=== PATIENT | female | born 1945 | race Caucasian/White ===

== ENCOUNTER 2021-05-02 20:13 | Emergency (ER) | payer MEDICARE, OTHER ==
[~2021-05-02] VITALS: Ht 165.1 cm; Wt 83.9 kg
--- NOTE | 2021-05-02 20:22 | ED Syncope ---
General Stated Complaint: FALL Source of Information: Patient, EMS Exam Limitations: No Limitations History of Present Illness Date Seen by Provider: May 02, 2021 Time Seen by Provider: 20:20 Initial Comments 75-year-old female with past medical history of hypertension, hyperlipidemia, thyroid disease coming in via EMS from home after she fell backwards hitting the back of her head, passing out, and afterwards waking up immediately. She says she was sitting on the couch watching the football game. She heard a noise which she thought was in the basement so she stood up quickly to go check. By the time she made it to the door she was feeling lightheaded and took some steps backwards before blacking out and falling backwards and hitting the back of her head. She says she was able to ambulate afterwards. She is having a mild headache, left shoulder pain, left chest wall pain, and some mild low back pain. Pain was better with ice that was applied. Denies any weakness, numbness, sign ificant chest pain, shortness of breath, palpitations, nausea, vomiting, diarrhea, dysuria, rash, vision changes, or any other concerns. She says she was just standing up holding onto her door about to go downstairs when this occurred. She does not remember if she changed positions suddenly before the event. She has been eating and drinking normally today. Allergies and Home Medications Allergies Coded Allergies: morphine (Verified Allergy, Unknown, 05/02/21) oxycodone (Verified Allergy, Unknown, 05/02/21) Patient Home Medication List Home Medication List Reviewed: Yes Review of Systems Constitutional: No chills, No fever EENTM: No blurred vision Respiratory: No cough, No short of breath Cardiovascular: No chest pain; syncope Gastrointestinal: No abdominal pain, No diarrhea, No nausea, No vomiting Genitourinary: no symptoms reported Musculoskeletal: joint pain Skin: no symptoms reported Psychiatric/Neurological: No Symptoms Reported All Other Systems Reviewed Negative Unless Noted: Yes Past Djdawmf-Dragiz-Xkdpld Hx Patient Social History Tobacco Use?: No Past Medical History Surgeries: Yes Hysterectomy, Orthopedic, Tonsillectomy Physical Exam Vital Signs Vital Signs - First Documented Capillary Refill : Height, Weight, BMI Height: '" Weight: lbs. oz. kg; BMI Method: General Appearance: No Apparent Distress, WD/WN HEENT: PERRL/EOMI, Normal ENT Inspection, Pharynx Normal Neck: Full Range of Motion, Normal Inspection, Non Tender, Supple Cardiovascular: Regular Rate, Rhythm, No Edema, Normal Peripheral Pulses Respiratory: Chest Non Tender, Lungs Clear, Normal Breath Sounds, No Accessory Muscle Use, No Respiratory Distress Gastrointestinal: Normal Bowel Sounds, Non Tender, Soft Back: Normal Inspection, No CVA Tenderness, No Vertebral Tenderness Extremities: Normal Capillary Refill, Normal Inspection, No Calf Tenderness, No Pedal Edema, Other (Pain with full range of motion of the left shoulder and tender along the left shoulder laterally, no midline spinal tenderness but does have some paraspinal tenderness in her lower back, no midline cervical spine tenderness as well and is able to range her neck without difficulty) Neurologic/Psychiatric: Alert, Oriented x3, No Motor/Sensory Deficits, Normal M ood/Affect, machine tender II-XII Norm as Tested Cranial Nerves: Normal Hearing, Normal Speech, PERRL Coordination/Gait: Normal Finger to Nose Motor/Sensory: No Motor Deficit, No Sensory Deficit Skin: Normal Color, Warm/Dry Lymphatic: No Adenopathy Progress/Results/Core Measures Results/Orders Lab Results Laboratory Tests Test 05/02/21 20:25 05/02/21 20:32 Range/Units White Blood Count 10.5 4.3-11.0 10^3/uL Red Blood Count 4.43 3.80-5.11 10^6/uL Hemoglobin 11.6 11.5-16.0 g/dL Hematocrit 38 35-52 % Mean Corpuscular Volume 85 80-99 fL Mean Corpuscular Hemoglobin 26 25-34 pg Mean Corpuscular Hemoglobin Concent 31 L 32-36 g/dL Red Cell Distribution Width 14.1 10.0-14.5 % Platelet Count 272 130-400 10^3/uL Mean Platelet Volume 9.9 9.0-12.2 fL Immature Granulocyte % (Auto) 1 % Neutrophils (%) (Auto) 60 42-75 % Lymphocytes (%) (Auto) 32 12-44 % Monocytes (%) (Auto) 6 0-12 % Eosinophils (%) (Auto) 1 0-10 % Basophils (%) (Auto) 0 0-10 % Neutrophils # (Auto) 6.3 1.8-7.8 X 10^3 Lymphocytes # (Auto) 3.3 1.0-4.0 X 10^3 Monocytes # (Auto) 0.7 0.0-1.0 X 10^3 Eosinophils # (Auto) 0.2 0.0-0.3 10^3/uL Basophils # (Auto) 0.0 0.0-0.1 10^3/uL Immature Granulocyte # (Auto) 0.1 0.0-0.1 10^3/uL Sodium Level 140 135-145 MMOL/L Potassium Level 4.6 3.6-5.0 MMOL/L Chloride Level 101 98-107 MMOL/L Carbon Dioxide Level 28 21-32 MMOL/L Anion Gap 11 5-14 MMOL/L Blood Urea Nitrogen 19 H 7-18 MG/DL Creatinine 1.23 0.60-1.30 MG/DL Estimat Glomerular Filtration Rate 46 BUN/Creatinine Ratio 15 Glucose Level 139 H 70-105 MG/DL Calcium Level 7.7 L 8.5-10.1 MG/DL Corrected Calcium 7.5 L 8.5-10.1 MG/DL Total Bilirubin 0.3 0.1-1.0 MG/DL Aspartate Amino Transf (AST/SGOT) 22 5-34 U/L Alanine Aminotransferase (ALT/SGPT) 13 0-55 U/L Alkaline Phosphatase 61 40-136 U/L Troponin I < 0.30 <0.30 NG/ML Total Protein 7.0 6.4-8.2 GM/DL Albumin 4.2 3.2-4.5 GM/DL Urine Color YELLOW Urine Clarity CLEAR Urine pH 7.0 5-9 Urine Specific [place] 1.015 L 1.016-1.022 Urine Protein NEGATIVE NEGATIVE Urine Glucose (UA) NEGATIVE NEGATIVE Urine Ketones NEGATIVE NEGATIVE Urine Nitrite NEGATIVE NEGATIVE Urine Bilirubin NEGATIVE NEGATIVE Urine Urobilinogen 0.2 < = 1.0 MG/DL Urine Leukocyte Esterase NEGATIVE NEGATIVE Urine RBC (Auto) NEGATIVE NEGATIVE Urine RBC NONE /HPF Urine WBC 5-10 H /HPF Urine Squamous Epithelial Cells 5-10 /HPF Urine Crystals NONE /LPF Urine Bacteria FEW H /HPF Urine Casts NONE /LPF Urine Mucus NEGATIVE /LPF Urine Culture Indicated YES My Orders Orders - ADEN GROSSMAN MD Ct Head/Cervical Spine Wo (05/02/21 20:22) Cbc With Automated Diff (05/02/21 20:22) Comprehensive Metabolic Panel (05/02/21 20:22) Troponin I Fs (05/02/21 20:22) Lumbar Spine 2 Or 3 View (05/02/21 20:22) Shoulder 3 View Left (05/02/21 20:22) Ekg Tracing (05/02/21 20:22) Chest Pa/Lat (2 View) (05/02/21 20:33) Acetaminophen Tablet (Tylenol Tablet) (05/02/21 21:00) Ns Iv 500 Ml (Sodium Chloride 0.9%) (05/02/21 21:00) Ua Culture If Indicated (05/02/21 20:48) Ed Iv/Invasive Line Start (05/02/21 20:48) Urine Culture (05/02/21 20:32) Medications Given in ED Current Medications Medications Dose Ordered Sig/Mary Route Start Time Stop Time Status Last Admin Dose Admin Acetaminophen 1,000 mg ONCE ONCE PO 05/02/21 21:00 05/02/21 21:01 DC 05/02/21 20:57 1,000 MG Sodium Chloride 500 ml @ 0 mls/hr Q0M ONCE IV 05/02/21 21:00 05/02/21 21:01 DC 05/02/21 20:57 999 MLS/HR Vital Signs/I&O 05/02/21 05/02/21 20:13 20:13 Temp 36.7 36.7 Pulse 93 93 Resp 16 16 B/P (MAP) 159/64 (95) 159/64 (95) Pulse Ox 97 97 O2 Delivery Room Air Room Air Progress Progress Note : Progress Note 75-year-old female with above history coming in after she fell and hit the back of her head. ABCs intact, GCS 15, vital stable on presentation. EMS reports her glucose was 120 for them. On arrival blood pressure is within normal limits and heart rate is in the 80s. Physical exam most notable for tenderness in her left shoulder and paraspinal tenderness in her lower back. Given her age and her syncopal episode we will also get a CT of her head and cervical spine. EKG and basic labs also ordered. Basic labs reassuring, she does have a slightly low calcium which she says is chronic for many many years. Troponin negative, hemoglobin normal, creatinine normal. EKG without ischemic changes. Chest x-ray, left shoulder x-ray, lumbar spine x-ray with chronic findings but nothing acute. CT head and cervical spine also without acute findings. After this the patient also stated that she recently just had a battery of tests run by her excel vba developer up [place]. She said she had a normal echo recently, normal DVT study, normal cardiac stress test. I suspect she had some orthostatic hypotension given the sudden change from sitting to standing before this occurred. Did give a small bolus of IV fluids to try to help with this. I believe she was stable for discharge with outpatient follow-up given she is back to her baseline. She was sent home with strict return precautions. Of note, her urinalysis did show some white blood cells and leukocyte esterase, however she is denying any dysuria or urinary frequency. I will forego treatment at this time until urine culture comes back Initial ECG Impression Date: May 02, 2021 Initial ECG Impression Time: 20:27 Initial ECG Rate: 89 Initial ECG Rhythm: Normal Sinus Comment Narrow QRS, normal axis, no significant ST changes or T wave abnormalities, is overall low voltage Diagnostic Imaging Diagonstic Imaging: Xray (l shoulder, chest, lumbar spine), CT (head and c spine) Comments [facility] [place], [place] NAME: SOULEYMANE GILES [facility] REC#: [id number] PT STATUS: REG ER : 1945 PHYSICIAN: ADEN GROSSMAN MD ADMIT DATE: 05/02/21/ER FS Signed Date of Exam:05/02/21 CT HEAD/CERVICAL SPINE WO EXAMINATION: CT head and CT cervical spine without contrast. TECHNIQUE: Multiple contiguous axial images were obtained through the brain and cervical spine without the use of intravenous contrast. Sagittal and coronal reformations through the cervical spine were then performed. All CT scans use one or more of the following dose optimizing techniques: automated exposure control, MA and/or KvP adjustment based on patient size and exam type or iterative reconstruction. HISTORY: Fall, hit head, syncope. COMPARISON: None available. FINDINGS: HEAD: Mild diffuse cerebral volume loss with proportional enlargement of the ventricles and sulci. Moderate hypodensities throughout the supratentorial white matter of both cerebral hemispheres. No acute intracranial hemorrhage or abnormal extra-axial fluid collections are present. Calcification of the intracranial ICAs. No hyperdense vessel. The calvarium is intact. The mastoid air cells are clear. The visualized paranasal sinuses are clear. The orbits are normal. C-SPINE: Vertebral body height and alignment are preserved. No acute fracture, dislocation or destructive osseous process. There is multilevel facet hypertrophy without perched facets. There is multilevel cervical spondylosis. The paraspinous soft tissues are normal. The visualized thyroid gland is nonvisualized. The visualized lung apices are normal. IMPRESSION: 1. No acute intracranial abnormality. Chronic microangiopathy and volume loss. 2. Degenerative changes of the cervical spine without acute osseous abnormality. Dictated by: Dictated on workstation # [id number] Dict: 05/02/212106 Trans: 05/02/212116 PJE [id number] Interpreted by: JAKE DOMINGUEZ DO Electronically signed by: JAKE DOMINGUEZ DO 05/02/212116 [facility] [place] [place] NAME: SOULEYMANE GILES [facility] REC#: [id number] PT STATUS: REG ER : 1945 PHYSICIAN: ADEN GROSSMAN MD ADMIT DATE: 05/02/21/ER FS Signed Date of Exam:05/02/21 CHEST PA/LAT (2 VIEW) EXAMINATION: Chest 2 view. HISTORY: Chest pain after injury. COMPARISON: None available. FINDINGS: Heart size and pulmonary vasculature are normal. The lungs are clear without consolidation, pleural effusion or pneumothorax. Degenerative changes of the thoracic spine. Osseous structures are otherwise intact. IMPRESSION: No acute radiographic abnormality in the chest. Dictated by: Dictated on workstation # [id number] Dict: 05/02/212109 Trans: 05/02/212117 [facility] [id number] Interpreted by: JAKE DOMINGUEZ DO Electronically signed by: JAKE DOMINGUEZ DO 05/02/212117 [facility] [place] [place] NAME: [facility] REC#: [id number] PT STATUS: REG ER : 1945 PHYSICIAN: ADEN GROSSMAN MD ADMIT DATE: 05/02/21/ER FS Draft Date of Exam:05/02/21 SHOULDER 3 VIEW LEFT EXAMINATION: Left shoulder radiographs. EXAM DATE: 05/02/2021 COMPARISON: None available. HISTORY: Left shoulder pain after fall. TECHNIQUE: 3 views of the left shoulder. FINDINGS: There is no acute fracture, dislocation or destructive osseous process. The joint spaces are normal. The soft tissues are normal. IMPRESSION: No acute osseous abnormality left shoulder. Dictated on workstation # [id number] Dict: 05/02/212115 Trans: 05/02/212117 [facility] [id number] Interpreted by: JAKE DOMINGUEZ DO Electronically signed by: [facility] [place] [place] NAME: SOULEYMANE GILES REC#: [id number] PT STATUS: REG ER : 1945 PHYSICIAN: ADEN GROSSMAN MD ADMIT DATE: 05/02/21/ER FS Signed Date of Exam:05/02/21 LUMBAR SPINE 2 OR 3 VIEW EXAMINATION: Lumbar spine radiographs. EXAM DATE: 05/02/2021 COMPARISON: None available. HISTORY: Pain after fall. TECHNIQUE: 3 views of the lumbar spine. FINDINGS: There is grade I anterolisthesis of L4 on L5. Vertebral body heights are maintained. Disc height loss at L4-L5 and L5-S1. No acute fracture is seen. Multilevel facet hypertrophy. Multilevel lumbar spondylosis. There is a 1.2 cm opacity overlying the left kidney which may represent a renal stone. IMPRESSION: Degenerative changes of the lumbar spine without acute osseous abnormality. Dictated by: Dictated on workstation # [id number] Dict: 05/02/212112 Trans: 05/02/212117 [facility] [id number] Interpreted by: JAKE DOMINGUEZ DO Electronically signed by: JAKE DOMINGUEZ DO 05/02/212117 Departure Impression Primary Impression: Syncope Qualified Codes: R55 - Syncope and collapse Additional Impressions: Left shoulder pain Qualified Codes: M25.512 - Pain in left shoulder Low back pain Qualified Codes: M54.50 - Low back pain, unspecified Fall Qualified Codes: W19.XXXA - Unspecified fall, initial encounter Disposition: 01 HOME, SELF-CARE Condition: Stable Departure-Patient Inst. Decision time for Depature: 21:42 Patient Instructions: Syncope (Fainting), Minor Head Injury (DC) Add. Discharge Instructions: You were seen in the emergency department after you passed out and fell backwards. We did a CT of your head and neck, x-rays of your chest, left shoulder, and back. We also did labs and an EKG which all were reassuring other than your slightly low calcium. I do recommend following up with your regular doctor and your excel vba developer especially if you continue to feel lightheaded. I suspect your blood pressure dropped when you stood up and went to check the door in the basement. be sure to drink plenty of fluids, take Tylenol 1000 mg every 6 hours as needed for pain. If you have a significant amount of pain and need to take something else, you can take naproxen 250 mg up to twice a day. You can try heat or ice, whichever feels better. ADEN GROSSMAN MD May 02, 2021 20:22
[2021-05-02 20:32] LABS: HEMATOCRIT 38 % (35-52); HEMOGLOBIN 11.6 g/dL (11.5-16.0); MEAN CORPUSCULAR HEMOGLOBIN 26 pg (25-34); MEAN CORPUSCULAR HGB CONC 31 g/dL (32-36); MEAN CORPUSCULAR VOLUME 85 fL (80-99); MEAN PLATELET VOLUME 9.9 fL (9.0-12.2); PLATELET COUNT 272 10^3/uL (130-400); WHITE BLOOD COUNT 10.5 10^3/uL (4.3-11.0)
[2021-05-02 20:33] LABS: BASOPHILS % (AUTO) 0 % (0-10); EOSINOPHILS # (AUTO) 0.2 10^3/uL (0.0-0.3); EOSINOPHILS % (AUTO) 1 % (0-10); LYMPHOCYTES # (AUTO) 3.3 X 10^3 (1.0-4.0); LYMPHOCYTES % (AUTO) 32 % (12-44); MONOCYTES # (AUTO) 0.7 X 10^3 (0.0-1.0); MONOCYTES % (AUTO) 6 % (0-12); NEUTROPHILS # (AUTO) 6.3 X 10^3 (1.8-7.8); NEUTROPHILS % (AUTO) 60 % (42-75)
[2021-05-02 20:50] LABS: CARBON DIOXIDE 28 MMOL/L (21-32); CHLORIDE 101 MMOL/L (98-107); POTASSIUM 4.6 MMOL/L (3.6-5.0); SODIUM 140 MMOL/L (135-145)
[2021-05-02 20:51] LABS: ALANINE AMINOTRANSFERASE 13 U/L (0-55); ALBUMIN 4.2 GM/DL (3.2-4.5); ALKALINE PHOSPHATASE 61 U/L (40-136); BILIRUBIN,TOTAL 0.3 MG/DL (0.1-1.0); BUN/CREATININE RATIO 15; CALCIUM 7.7 MG/DL (8.5-10.1); CREATININE SERUM 1.23 MG/DL (0.60-1.30); GFR ESTIMATED 46; GLUCOSE 139 MG/DL (70-105)
[2021-05-02 20:56] LABS: BACTERIA,URINE FEW /HPF; BILIRUBIN,URINE NEGATIVE (NEGATIVE); CLARITY,URINE CLEAR; COLOR,URINE YELLOW; GLUCOSE, URINE (UA) NEGATIVE (NEGATIVE); KETONES,URINE NEGATIVE (NEGATIVE); LEUKOCYTE ESTERASE ,URINE NEGATIVE (NEGATIVE); NITRITE,URINE NEGATIVE (NEGATIVE); PROTEIN,URINE NEGATIVE (NEGATIVE)
[2021-05-02] MEDS ORDERED: ACETAMINOPHEN 500 MG TAB (TYLENOL) PO ONE (21:00)
[2021-05-02] MEDS ORDERED: NS IV 500 ML 500 ML IV ONE (21:00)
--- NOTE | 2021-05-02 21:12 | Diagnostic Imaging Report ---
EXAMINATION: CT head and CT cervical spine without contrast. TECHNIQUE: Multiple contiguous axial images were obtained through the brain and cervical spine without the use of intravenous contrast. Sagittal and coronal reformations through the cervical spine were then performed. All CT scans use one or more of the following dose optimizing techniques: automated exposure control, MA and/or KvP adjustment based on patient size and exam type or iterative reconstruction. HISTORY: Fall, hit head, syncope. COMPARISON: None available. FINDINGS: HEAD: Mild diffuse cerebral volume loss with proportional enlargement of the ventricles and sulci. Moderate hypodensities throughout the supratentorial white matter of both cerebral hemispheres. No acute intracranial hemorrhage or abnormal extra-axial fluid collections are present. Calcification of the intracranial ICAs. No hyperdense vessel. The calvarium is intact. The mastoid air cells are clear. The visualized paranasal sinuses are clear. The orbits are normal. C-SPINE: Vertebral body height and alignment are preserved. No acute fracture, dislocation or destructive osseous process. There is multilevel facet hypertrophy without perched facets. There is multilevel cervical spondylosis. The paraspinous soft tissues are normal. The visualized thyroid gland is nonvisualized. The visualized lung apices are normal. IMPRESSION: 1. No acute intracranial abnormality. Chronic microangiopathy and volume loss. 2. Degenerative changes of the cervical spine without acute osseous abnormality. Dictated by: Dictated on workstation # [id number]
--- NOTE | 2021-05-02 21:12 | Diagnostic Imaging Report ---
EXAMINATION: Chest 2 view. HISTORY: Chest pain after injury. COMPARISON: None available. FINDINGS: Heart size and pulmonary vasculature are normal. The lungs are clear without consolidation, pleural effusion or pneumothorax. Degenerative changes of the thoracic spine. Osseous structures are otherwise intact. IMPRESSION: No acute radiographic abnormality in the chest. Dictated by: Dictated on workstation # [id number]
--- NOTE | 2021-05-02 21:16 | Diagnostic Imaging Report ---
EXAMINATION: Lumbar spine radiographs. EXAM DATE: 05/02/2021 COMPARISON: None available. HISTORY: Pain after fall. TECHNIQUE: 3 views of the lumbar spine. FINDINGS: There is grade I anterolisthesis of L4 on L5. Vertebral body heights are maintained. Disc height loss at L4-L5 and L5-S1. No acute fracture is seen. Multilevel facet hypertrophy. Multilevel lumbar spondylosis. There is a 1.2 cm opacity overlying the left kidney which may represent a renal stone. IMPRESSION: Degenerative changes of the lumbar spine without acute osseous abnormality. Dictated by: Dictated on workstation # [id number]
--- NOTE | 2021-05-02 21:19 | Diagnostic Imaging Report ---
EXAMINATION: Left shoulder radiographs. EXAM DATE: 05/02/2021 COMPARISON: None available. HISTORY: Left shoulder pain after fall. TECHNIQUE: 3 views of the left shoulder. FINDINGS: There is no acute fracture, dislocation or destructive osseous process. The joint spaces are normal. The soft tissues are normal. IMPRESSION: No acute osseous abnormality left shoulder. Dictated by: Dictated on workstation # [id number]
[2021-05-02 21:50] VITALS: BP 159/64
== END 2021-05-02 21:50 | disposition home or self-care (01) ==
LOC: ER FS 20:22
DX: R55 Syncope and collapse (principal); M25.512 Pain in left shoulder; M54.50 Low back pain, unspecified; E83.51 Hypocalcemia; D72.829 Elevated white blood cell count, unspecified; I10 Essential (primary) hypertension; Z88.5 Allergy status to narcotic agent; W01.119A Fall on same level from slipping, tripping and stumbling with subsequent striking against unspecified sharp object, initial encounter
CPT/HCPCS: 36415; 70450; 71046; 72100; 72125; 73030; 80053; 81000; 84484; 85025; 87088